=== PATIENT | female | born 1990 | race Caucasian/White ===

== ENCOUNTER → 2018-06-23 | Outpatient (CLI) | payer OTHER ==
--- NOTE | 2018-06-24 11:17 | XCELERA REPORT ---
[address] [address] Transthoracic Echocardiogram Report Name: JORGE ALEMAN Age: 27 yrs Gender: Female : 1990 Patient Status: Outpatient Patient Location: [facility] Study Date: 06/23/2018 09:00 AM Procedure: A complete two-dimensional transthoracic echocardiogram was performed (2D, M-mode, spectral and color flow Doppler). The study was technically adequate with some images being suboptimal in quality. Reason For Study: PERIPARTUM CARDIOMYOPATHY Ordering Physician: FOREIGN STEWARD Performed By: Syeda Lroenzana Interpretation Summary Left ventricular systolic function is low normal. Doppler measurements suggest normal left ventricular diastolic function The left ventricle is grossly normal size. Wall motion cannot be accurately commented on, but no definite regional wall motion abnormalities noted. There is normal left ventricular wall thickness. The right ventricular systolic function is normal. The left atrial size is normal. The right atrium is normal in size There is no mitral regurgitation noted. There is no mitral valve stenosis. No aortic regurgitation is present. There is no aortic valve stenosis There is no tricuspid stenosis. No tricuspid regurgitation. The aortic root is not well visualized but is probably normal size. The inferior vena cava appeared normal and decreased > 50% with respiration (RAP 5-10 mmHg) There is no pericardial effusion. MMode/2D Measurements & Calculations RVDd: 2.4 cm LVIDd: 5.3 cm FS: 35.2 % Ao root diam: 2.6 cm IVSd: 0.78 cm LVIDs: 3.5 cm EDV(Teich): 136.9 ml Ao root area: 5.5 cm2 LVPWd: 0.91 cm ESV(Teich): 49.2 ml EF(Teich): 64.0 % Doppler Measurements & Calculations MV E max evelina: MV dec slope: Ao V2 max: LV V1 max P.7 cm/sec 141.4 cm/sec 6.4 mmHg MV A max evelina: 610.9 cm/sec2 Ao max PG: LV V1 max: 65.2 cm/sec MV dec time: 0.18 sec8.0 mmHg 126.6 cm/sec MV E/A: 1.7 PA V2 max: TR max evelina: 104.7 cm/sec 268.7 cm/sec PA max P.4 mmHg TR max P.9 mmHg Left Ventricle The left ventricle is grossly normal size. There is normal left ventricular wall thickness. Left ventricular systolic function is low normal. Doppler measurements suggest normal left ventricular diastolic function. Wall motion cannot be accurately commented on, but no definite regional wall motion abnormalities noted. Right Ventricle The right ventricle is grossly normal size. There is normal right ventricular wall thickness. The right ventricular systolic function is normal. Atria The right atrium is normal in size. The left atrial size is normal. Interarterial septum not well visualized and not well dopplered. Cannot comment on ASD/PFO presence. Mitral Valve The mitral valve is grossly normal. There is no mitral valve stenosis. There is no mitral regurgitation noted. Aortic Valve The aortic valve is grossly normal. There is no aortic valve stenosis. No aortic regurgitation is present. Tricuspid Valve The tricuspid valve is not well visualized secondary to technical limitations. There is no tricuspid stenosis. No tricuspid regurgitation. Pulmonic Valve The pulmonic valve is not well visualized. Great Vessels The aortic root is not well visualized but is probably normal size. The inferior vena cava appeared normal and decreased > 50% with respiration (RAP 5-10 mmHg). Effusions There is no pericardial effusion. : FOREIGN STEWARD > Sourav Almazan
== END ==
LOC: RAD 07:40
PROVIDERS: ATTEND Nurse Practitioner Family
DX: O90.3 Peripartum cardiomyopathy (principal)
CPT/HCPCS: 93306

== ENCOUNTER → 2019-01-08 | Outpatient (CLI) | payer OTHER ==
--- NOTE | 2019-01-08 17:14 | RADIOLOGY REPORT (SQ) ---
EXAM DESCRIPTION: CHEST PA/LATERAL COMPLETED DATE/TIME: 01/08/2019 5:01 pm REASON FOR STUDY: PNEUMONIA, UNSPECIFIED ORGANISM COMPARISON: None. EXAM PARAMETERS: NUMBER OF VIEWS: two views TECHNIQUE: Digital Frontal and Lateral radiographic views of the chest acquired. RADIATION DOSE: NA LIMITATIONS: none FINDINGS: LUNGS AND PLEURA: No opacities, masses or pneumothorax. No pleural effusion. MEDIASTINUM AND HILAR STRUCTURES: No masses or contour abnormalities. HEART AND VASCULAR STRUCTURES: Heart normal size. No evidence for failure. BONES: No acute findings. HARDWARE: None in the chest. OTHER: No other significant finding. IMPRESSION: 1. NO SIGNIFICANT RADIOGRAPHIC FINDING IN THE CHEST. TECHNICAL DOCUMENTATION: JOB ID: [id number] [employer]- All Rights Reserved Reading location - IP/workstation name: [email or web address]
== END ==
LOC: OD 16:36
PROVIDERS: ATTEND Family Medicine
DX: J18.9 Pneumonia, unspecified organism (principal)
CPT/HCPCS: 71046

== ENCOUNTER 2019-04-01 16:15 | Emergency (ER) | payer OTHER ==
--- NOTE | 2019-04-01 16:35 | ER Document Report ---
ED Medical Screen (RME) - General Chief Complaint: Palpitations Stated Complaint: HEART PALPITATIONS Time Seen by Provider: 04/01/19 16:33 Primary Care Provider: NAJMA VELA DO [Primary Care Provider] - Follow up as needed Mode of Arrival: Ambulatory Information source: Patient Notes: 28-year-old female presented to ED for palpitations at home with fluctuating he artbeat. She states that these she had no other symptoms. She states she does have a history of preeclampsia with a hospital thought she had cardiomyopathy but after testing it was determined it was preeclampsia with fluid affecting the heart. Patient is alert oriented respirations regular and unlabored speaking in full sentences walks with even steady gait. I have greeted and performed a rapid initial assessment of this patient. A comprehensive ED assessment and evaluation of the patient, analysis of test results and completion of medical decision making process will be conducted by an additional ED providers. TRAVEL OUTSIDE OF THE [place] IN LAST 30 DAYS: No - Related Data Allergies/Adverse Reactions: No Known Allergies Allergy (Verified 04/01/19 16:17) Physical Exam - Vital signs Vitals: Temp Pulse Resp BP Pulse Ox 98.2 F 70 16 135/85 H 98 04/01/19 16:22 04/01/19 16:22 04/01/19 16:22 04/01/19 16:22 04/01/19 16:22 Course - Vital Signs Vital signs: Temp Pulse Resp BP Pulse Ox 98.2 F 70 16 135/85 H 98 04/01/19 16:22 04/01/19 16:22 04/01/19 16:22 04/01/19 16:22 04/01/19 16:22 Doctor's Discharge - Discharge Referrals: NAJMA VELA DO [Primary Care Provider] - Follow up as needed
--- NOTE | 2019-04-01 17:28 | RADIOLOGY REPORT (SQ) ---
EXAM DESCRIPTION: CHEST 2 VIEWS COMPLETED DATE/TIME: 04/01/2019 5:16 pm REASON FOR STUDY: palpitations COMPARISON: 01/08/2019 EXAM PARAMETERS: NUMBER OF VIEWS: two views TECHNIQUE: Digital Frontal and Lateral radiographic views of the chest acquired. RADIATION DOSE: NA LIMITATIONS: none FINDINGS: LUNGS AND PLEURA: No opacities, masses or pneumothorax. No pleural effusion. MEDIASTINUM AND HILAR STRUCTURES: No masses or contour abnormalities. HEART AND VASCULAR STRUCTURES: Heart normal size. No evidence for failure. BONES: No acute findings. HARDWARE: None in the chest. OTHER: No other significant finding. IMPRESSION: NO ACUTE RADIOGRAPHIC FINDING IN THE CHEST. TECHNICAL DOCUMENTATION: JOB ID: [id number] [employer]- All Rights Reserved Reading location - IP/workstation name: [email or web address]
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
[2019-04-01 17:43] LABS: APPEARANCE,URINE CLEAR; BILIRUBIN,URINE NEGATIVE (NEGATIVE); COLOR,URINE YELLOW; GLUCOSE, URINE NEGATIVE (NEGATIVE); KETONES,URINE NEGATIVE (NEGATIVE); LEUKOCYTE ESTERASE,URINE NEGATIVE (NEGATIVE); NITRITE,URINE NEGATIVE (NEGATIVE); PROTEIN,URINE NEGATIVE (NEGATIVE); URINE SPECIFIC GRAVITY 1.013; UROBILINOGEN,URINE NEGATIVE mg/dL (<2.0)
[2019-04-01 17:47] LABS: ALBUMIN 4.9 g/dL (3.5-5.0); ALKALINE PHOSPHATASE 76 U/L (38-126); ANION GAP 9 (5-19); ASPARTATE AMINO TRANSFERASE 23 U/L (14-36); BILIRUBIN,DIRECT 0.2 mg/dL (0.0-0.4); BILIRUBIN,TOTAL 0.3 mg/dL (0.2-1.3); BLOOD UREA NITROGEN 11 mg/dL (7-20); CALCIUM 9.4 mg/dL (8.4-10.2); CARBON DIOXIDE 29 mmol/L (22-30); CHLORIDE 103 mmol/L (98-107); GLUCOSE 103 mg/dL (75-110); POTASSIUM 4.5 mmol/L (3.6-5.0)
[2019-04-01 18:04] LABS: FREE T3 4.76 pg/mL (2.77-5.27); FREE T4 (FREE THYROXINE) 1.23 ng/dL (0.78-2.19)
[2019-04-01 18:17] LABS: ABSOLUTE BASOPHILS # (AUTO) 0.1 10^3/uL (0.0-0.2); ABSOLUTE EOSINOPHILS # (AUTO) 0.3 10^3/uL (0.0-0.6); ABSOLUTE LYMPHOCYTES (AUTO) 2.3 10^3/uL (0.5-4.7); ABSOLUTE MONOCYTES (AUTO) 0.3 10^3/uL (0.1-1.4); BASOPHILS % (AUTO) 1.2 % (0-2); EOSINOPHILS % (AUTO) 5.4 % (0-6); HEMATOCRIT 37.2 % (36.0-47.0); HEMOGLOBIN 12.2 g/dL (12.0-15.5); LYMPHOCYTES % (AUTO) 38.6 % (13-45); MEAN CORPUSCULAR HGB CONC 32.9 g/dL (32.0-36.0); MEAN CORPUSCULAR VOLUME 88 fl (80-97); MONOCYTES % (AUTO) 5.1 % (3-13); PLATELET COUNT 204 10^3/uL (150-450); RED BLOOD COUNT 4.21 10^6/uL (3.72-5.28); RED CELL DISTRIBUTION WIDTH 14.3 % (11.5-14.0); SEGMENTED NEUTROPHILS % (AUTO) 49.7 % (42-78); THYROID STIMULATING HORMONE 3.98 uIU/mL (0.47-4.68); TOTAL CELLS COUNTED % (AUTO) 100 %; WHITE BLOOD COUNT 6.1 10^3/uL (4.0-10.5)
[2019-04-01 19:10] VITALS: BP 111/71
[2019-04-01 19:25] LABS: URINE AMPHETAMINES SCREEN NEGATIVE; URINE BARBITURATES SCREEN NEGATIVE; URINE BENZODIAZEPINES SCREEN NEGATIVE; URINE COCAINE SCREEN NEGATIVE; URINE MARIJUANA (THC) SCREEN NEGATIVE; URINE METHADONE SCREEN NEGATIVE; URINE PHENCYCLIDINE SCREEN NEGATIVE
--- NOTE | 2019-04-01 20:39 | EKG REPORT ---
SEVERITY:- NORMAL ECG - SINUS RHYTHM : Confirmed by: Marian Manzano MD 01-Apr-2019 20:39:15
== END 2019-04-01 19:10 | disposition home or self-care (01) ==
LOC: ER 16:15
DX: R00.2 Palpitations (principal); E03.9 Hypothyroidism, unspecified
CPT/HCPCS: 36415; 71046; 80053; 80307; 81001; 83735; 84439; 84443; 84481; 84484; 84703; 85025; 93005; 93010; 99285

== ENCOUNTER 2019-08-20 21:51 | Emergency (ER) | payer OTHER ==
[2019-08-21] MEDS ORDERED: DIPH/PERTUSS(ACELL)/TETANUS VAC/PF 0.5 ML SYR (>=10YO) IM ONE (01:48)
--- NOTE | 2019-08-21 01:50 | ER Document Report ---
HPI - HPI Time Seen by Provider: 08/21/19 01:33 Pain Level: 2 Context: Patient is a 28-year-old female that comes to the emergency department for chief complaint of stepping on a foreign object just prior to arrival. She stepped in the location of her left heel, she was barefoot and in her house, she states that she examined the area and pulled out a piece of what looked like dog hair attached to something. She states she feels like there is still something in there, she has mild discomfort when ambulating. She denies any other complaints. She is not a diabetic. Her tetanus is not up-to-date. She takes no daily medications other than Synthroid, she denies . - CONSTITUTIONAL Constitutional: DENIES: Fever, Chills - EENT EENT: DENIES: Sore Throat, Ear Pain, Eye problems - NEURO Neurology: DENIES: Headache, Weakness, Vision blurred, Dizzinesss / Vertigo - CARDIOVASCULAR Cardiovascular: DENIES: Chest pain - RESPIRATORY Respiratory: DENIES: Trouble Breathing, Coughing - GASTROINTESTINAL Gastrointestinal: DENIES: Abdominal Pain, Black / Bloody Stools - URINARY Urinary: DENIES: Dysuria, Urgency, Frequency - REPRODUCTIVE Reproductive: DENIES: :, Postmenopausal, Abnormal bleeding / discharge - MUSCULOSKELETAL Musculoskeletal: DENIES: Extremity pain - DERM Skin Color: Normal, [place] Past Medical History - General Information source: Patient - Social History Smoking Status: Never Smoker Frequency of alcohol use: None Drug Abuse: None Lives with: Family Family History: Reviewed & Not Pertinent Patient has suicidal ideation: No Patient has homicidal ideation: No Endocrine Medical History: Reports: Hx Hypothyroidism. Denies: Hx Diabetes Mellitus Type 1, Hx Diabetes Mellitus Type 2 Renal/ Medical History: Denies: Hx Peritoneal Dialysis - Immunizations Immunizations up to date: Yes Hx Diphtheria, Pertussis, Tetanus Vaccination: Yes Vertical Provider Document - CONSTITUTIONAL General Appearance: WD/WN, No Apparent Distress - INFECTION CONTROL TRAVEL OUTSIDE OF THE [place] IN LAST 30 DAYS: No - HEENT HEENT: Atraumatic, Normocephalic - NECK Neck: Normal Inspection - RESPIRATORY Respiratory: Breath Sounds Normal, No Respiratory Distress - CARDIOVASCULAR Cardiovascular: Regular Rate, Regular Rhythm - GI/ABDOMEN Gastrointestinal: Abdomen Soft, Abdomen Non-Tender - BACK Back: Normal Inspection - MUSCULOSKELETAL/EXTREMETIES Musculoskeletal/Extremeties: MAEW, FROM, Tender - The heel pad of the left foot has a tiny area which is consistent with a very small puncture. There is no current bleeding, there is no erythema, swelling, or notable tenderness. I cannot palpate a foreign body. Normal foot, ankle, leg exam otherwise. Normal distal neurovascular exam. Course - Re-evaluation Re-evalutation: Tetanus updated. Patient was barefoot and in her house, this was not a very dirty wound or puncture, patient probably took everything out based on the examination, x-ray does not show anything, I cannot feel a foreign body. Discussed options. Decision was made to give her Keflex prophylaxis, discussed wound care, follow-up, return precautions. Patient states understanding and agreement. Discharge - Discharge Clinical Impression: Puncture wound Condition: Stable Disposition: HOME, SELF-CARE Additional Instructions: Your evaluation is reassuring, the x-ray is negative, take the antibiotic as prescribed to reduce risk of infection, keep area clean, covered, and dressed with a topical antibiotic. Follow-up with primary care. Return for any signs of infection including developing swelling, redness, discolored discharge, fever, or any other concerning symptoms. Prescriptions: Cephalexin Monohydrate [Keflex 500 mg Capsule] 500 mg PO TID 5 Days #15 capsule Referrals: AYANNA RASMUSSEN MD [Primary Care Provider] - Follow up as needed
--- NOTE | 2019-08-21 02:21 | RADIOLOGY REPORT (SQ) ---
EXAM DESCRIPTION: XR FOOT 1-2 VIEWS CLINICAL HISTORY: splinter/FB in foot? COMPARISON: None FINDINGS/IMPRESSION: AP and lateral views of the left foot were submitted. No subluxation or discrete fracture is seen. Bone mineralization is within normal limits. No radiopaque foreign bodies are observed.
[2019-08-21] MEDS ORDERED: CEPHALEXIN 500 MG CAPSULE PO ONE (03:37)
[2019-08-21 04:10] VITALS: BP 125/68
== END 2019-08-21 04:04 | disposition home or self-care (01) ==
LOC: ER 21:51
DX: T14.8XXA Other injury of unspecified body region, initial encounter (principal); W26.9XXA Contact with unspecified sharp object(s), initial encounter; Y92.009 Unspecified place in unspecified non-institutional (private) residence as the place of occurrence of the external cause; E03.9 Hypothyroidism, unspecified; Z79.899 Other long term (current) drug therapy; Z23 Encounter for immunization
CPT/HCPCS: 90471; 90715; 99283

== ENCOUNTER 2019-10-30 09:52 | Emergency (ER) | payer OTHER ==
[2019-10-30 09:56] VITALS: BP 123/61
--- NOTE | 2019-10-30 10:02 | ER Document Report ---
HPI - HPI Time Seen by Provider: 10/30/19 09:59 Onset: Other - This is a 29-year-old female presents to the emergency room today stating that her 30 pound toddler had run in her full force and she grabbed and lifted the child. She had a spasm to the subscapular area to the right side posteriorly. Full range of motion. Associated Symptoms: None Exacerbated by: Denies Relieved by: Denies Recently seen / treated by doctor: No - REPRODUCTIVE Reproductive: DENIES: : Past Medical History - General Information source: Patient - Social History Smoking Status: Never Smoker Cigarette use (# per day): No Chew tobacco use (# tins/day): No Smoking Education Provided: No Family History: Reviewed & Not Pertinent Endocrine Medical History: Reports: Hx Hypothyroidism. Denies: Hx Diabetes Mellitus Type 1, Hx Diabetes Mellitus Type 2 Renal/ Medical History: Denies: Hx Peritoneal Dialysis - Immunizations Immunizations up to date: Yes Hx Diphtheria, Pertussis, Tetanus Vaccination: Yes Vertical Provider Document - CONSTITUTIONAL Agree With Documented VS: Yes - INFECTION CONTROL TRAVEL OUTSIDE OF THE [place] IN LAST 30 DAYS: No - HEENT HEENT: Atraumatic, Conjuctival Injection, Normocephalic - NECK Neck: Normal Inspection - RESPIRATORY Respiratory: Breath Sounds Normal - CARDIOVASCULAR Cardiovascular: Regular Rate, Regular Rhythm - GI/ABDOMEN Gastrointestinal: Abdomen Soft, Abdomen Non-Tender - BACK Back: Normal Inspection - MUSCULOSKELETAL/EXTREMETIES Musculoskeletal/Extremeties: MAEW Notes: Good distal pulses full range of motion to affected area. Pain subscapular Marco reproducible on palpation and internal rotation Course - Vital Signs Vital signs: Temp Pulse Resp BP Pulse Ox 97.9 F 62 18 123/61 100 10/30/19 09:55 10/30/19 09:55 10/30/19 09:55 10/30/19 09:55 10/30/19 09:55 Discharge - Discharge Clinical Impression: Muscle spasm Disposition: HOME, SELF-CARE Additional Instructions: Warm compresses to affected area. Massage techniques to the trigger point as discussed. Medication as prescribed. Ibuprofen [id number] every 6 hours. Do not take muscle relaxers while operating machinery or driving. Follow-up with PMD 3 to 5 days. Prescriptions: Methocarbamol [Robaxin 750 mg Tablet] 750 mg PO ASDIR PRN #40 tablet PRN Reason: Referrals: GRADY,AYANNA, MD [Primary Care Provider] - Follow up as needed
== END 2019-10-30 10:09 | disposition home or self-care (01) ==
LOC: ER 09:52
DX: M62.838 Other muscle spasm (principal)
CPT/HCPCS: 99283